=== PATIENT | male | born 1990 | race Caucasian/White ===

== ENCOUNTER 2020-05-15 17:23 | Emergency (ER) | payer OTHER, SELFPAY ==
--- NOTE | 2020-05-15 | XR_ITS ---
EXAMINATION: 1. LEFT FOREARM. 2. LEFT ELBOW. 3. LEFT HUMERUS CLINICAL INFORMATION: Trauma. Pain. COMPARISON: None TECHNIQUE: 1. Left forearm. 2 views 2. Left elbow. 3 views 3. Left humerus. 2 views FINDINGS: 1. Left forearm. No fracture of the radius or ulna. Wrist is unremarkable. 2. Left elbow. There is complete dislocation of the elbow. The radius and ulna are dislocated posterior to the distal humerus. No fracture is evident. 3. Left humerus. No fracture of the left humerus. The shoulder is intact. XR/XR humerus LT IMPRESSION: 1. Left forearm. No acute abnormality. 2. Left elbow. Complete dislocation of the elbow. 3. Left humerus. No acute abnormality.
--- NOTE | 2020-05-15 | XR_ITS ---
EXAMINATION: 1. LEFT FOREARM. 2. LEFT ELBOW. 3. LEFT HUMERUS CLINICAL INFORMATION: Trauma. Pain. COMPARISON: None TECHNIQUE: 1. Left forearm. 2 views 2. Left elbow. 3 views 3. Left humerus. 2 views FINDINGS: 1. Left forearm. No fracture of the radius or ulna. Wrist is unremarkable. 2. Left elbow. There is complete dislocation of the elbow. The radius and ulna are dislocated posterior to the distal humerus. No fracture is evident. 3. Left humerus. No fracture of the left humerus. The shoulder is intact. XR/XR elbow LT 2V IMPRESSION: 1. Left forearm. No acute abnormality. 2. Left elbow. Complete dislocation of the elbow. 3. Left humerus. No acute abnormality.
--- NOTE | 2020-05-15 | XR_ITS ---
EXAMINATION: 1. LEFT FOREARM. 2. LEFT ELBOW. 3. LEFT HUMERUS CLINICAL INFORMATION: Trauma. Pain. COMPARISON: None TECHNIQUE: 1. Left forearm. 2 views 2. Left elbow. 3 views 3. Left humerus. 2 views FINDINGS: 1. Left forearm. No fracture of the radius or ulna. Wrist is unremarkable. 2. Left elbow. There is complete dislocation of the elbow. The radius and ulna are dislocated posterior to the distal humerus. No fracture is evident. 3. Left humerus. No fracture of the left humerus. The shoulder is intact. XR/XR forearm LT 2V IMPRESSION: 1. Left forearm. No acute abnormality. 2. Left elbow. Complete dislocation of the elbow. 3. Left humerus. No acute abnormality.
[2020-05-15 18:11] VITALS: BP 150/88; PULSE 74; RESP 16; TEMP 36.6; O2SAT 96; BMI 22.3
[2020-05-15 19:36] VITALS: RESP 18
[2020-05-15] MEDS: LORazepam 2 MG/ML VIAL 1 MG IVPUSH (19:36)
[2020-05-15] MEDS: fentaNYL citrate/PF 100 MCG/2 ML VIAL IVPUSH (19:36)
--- NOTE | 2020-05-15 19:36 | PC.NURSE ---
PATIENT MEDICATED ORDERED WITH FENTANYL 50MCG AND ATIVAN 1MG. ABBEYCEMENT KILN OPERATOR, THIS RN, AND KAI HERRMANN AT BEDSIDE. PATIENT TOLERATED WELL. VITAL SIGNS REMAIN STABLE. PT IS A&O TO PERSON, PLACE, & TIME. RESPIRATIONS EVEN & UNLABORED. WILL CONTINUE TO MONITOR.
--- NOTE | 2020-05-15 19:42 | XR_ITS ---
EXAMINATION: XR ELBOW, LEFT CLINICAL INFORMATION: Post elbow reduction COMPARISON: None TECHNIQUE: AP, lateral, and oblique views of the left elbow. FINDINGS: The elbow dislocation has been reduced. 2 views show no evidence of fracture. Soft tissue swelling is present, significantly increased when compared to the prereduction films. XR/XR elbow LT 2V IMPRESSION: No fracture or dislocation. Soft tissue swelling is present
--- NOTE | 2020-05-15 19:50 | PC.NURSE ---
PATIENT MEDICATED FOR PAIN WITH FENTANYL 50MCG AND ATIVAN 1MG, ORDERED. PATIENT TOLERATED WILL. LIZZIE POTTER DID NOT WISH TO SEDATE PATIENT FOR LEFT ELBOW REDUCTION, PATIENT AGREEABLE TO PLAN OF CARE AND HAS A RIDE AVAILABLE TO DRIVE HIM HOME UPON DISCHARGE. PATIENT ALSO AWARE OF PLAN TO MONITOR IN ED PRIOR TO DISCHARGE HOME. SLING PLACED TO LEFT ARM, REPEAT X-RAY OBTAINED. PENDING RESULTS. PATIENT REMAINS CALM/COOPERATIVE, ALERT & ORIENTED TO PERSON,PLACE, & TIME. RESPIRATIONS EVEN & UNLABORED. SPEAKING IN CLEAR FULL SENTENCES. DENIES COMPLAINTS AT THIS TIME.
[2020-05-15 20:25] VITALS: BP 140/74; PULSE 75; RESP 18; TEMP 36.8; O2SAT 98
--- NOTE | 2020-05-15 20:28 | PC.NURSE ---
patient a&ox3, lt arm in sling, + csm/pulses to lue, vss, pt c/o 03/24 pain, will notify provider and continue to monitor.
[2020-05-15] MEDS: Ibuprofen 800 MG TABLET PO (21:05)
--- NOTE | 2020-05-15 21:06 | PC.NURSE ---
patient medicated for pain per order
--- NOTE | 2020-05-15 21:35 | ED.EXTPRO ---
HPI - Extremity Problem General Chief complaint: Fall Stated complaint: hand inj Time Seen by Provider: 05/15/20 18:00 Source: patient Mode of arrival: ambulatory Limitations: no limitations History of Present Illness HPI Narrative: Left elbow pain status post fall from skateboard. This occurred 45 minutes prior to arrival states he fell backwards hyper extended his arm and felt a popping sensation the elbow area. Denies any other injury. No head, neck, torso injury. Very pleasant does report that he is in recovery from substance and has not used any illicit substance and many years. MD Complaint: extremity pain Onset (ago): minute(s) Location: left Quality: aching Radiation: none Relieving factors: cold therapy and immobilization Exacerbating factors: range of motion and palpation Associated symptoms: denies other symptoms Related Data Previous Rx's Medication Instructions Recorded duloxetine 1 cap PO DAILY #30 cap 05/20/20 mirtazapine [Remeron] 15 mg PO BEDTIME #30 tab 05/20/20 nicotine 14 mg TRANSDERMAL DAILY #14 ea 05/20/20 prednisone 1 tab PO DAILY #30 tab 05/20/20 arm brace #1 ea 05/25/20 Allergies Allergy/AdvReac Type Severity Reaction Status Date / Time SEAFOOD Allergy Unknown UNKNOWN Uncoded 03/01/20 18:04 Review of Systems Review of Systems: Constitutional: No Weight loss, No Fever, No Chills, No Night Sweats, No Fatigue, No Malaise ENT/Mouth: No Hearing loss, No Ear Pain, No Nasal Congestion, No Sinus Pain, No Hoarseness, No sore throat, No Rhinorrhea, No Swallowing Difficulty Eyes: No Eye Pain, No Swelling, No Redness, No Foreign Body, No Discharge, No Vision Changes Cardiovascular: No Chest Pain, No SOB, No Dyspnea on Exertion, No Orthopnea, No Edema, No Palpitations Respiratory: No Cough, No Sputum, No Wheezing, No Smoke Exposure, No Dyspnea Gastrointestinal: No Nausea, No Vomiting, No Diarrhea, No Constipation, No abdominal Pain, No Hematochezia, No Melena Genitourinary: No Dysuria, No Urinary Frequency, No Hematuria, No Urinary Incontinence, No Urgency, No Flank Pain Musculoskeletal: No joint pain, No Myalgias, as noted in HPI Skin: No Skin Lesions, No rash Neuro: No Weakness, No Numbness, No Paresthesias, No Loss of Consciousness, No Dizziness, No Headache Psych: No Anxiety/Panic, No Depression, No SI/HI/AH/VH, No Social Issues Heme/Lymph: No Bruising, No Bleeding,No Lymphadenopathy Endocrine: No Polyuria, No Polydipsia, No Temperature Intolerance Yes all other systems are reviewed and are negative [facility] Past Medical History Medical History Cellulitis Eosinophilia HCV (hepatitis C virus) MRSA (methicillin resistant staph aureus) culture positive Opiate abuse, episodic Social History Social History Alcohol intake: never Smoking Status: Current every day smoker Packs Per Day: 1 Substance Use Type: Crack/Cocaine and Heroin service: No Current occupational status: unemployed Physical Exam Vital Signs: Vital Signs: Last Vital Signs Temp 98.2 F 05/15/20 20:25 Pulse 75 05/15/20 20:25 Resp 18 05/15/20 20:25 BP 140/74 H 05/15/20 20:25 Pulse Ox 98 05/15/20 20:25 Body Mass Index 22.3 Reviewed Const: General: cooperative and healthy appearing; No acute distress or intoxicated appearing Nutritional Appearance: average body habitus Orientation/consciousness: patient oriented x3 HENMT: Head: Yes normal to inspection Ears: hearing grossly normal bilaterally Eyes: General: appearance normal, both eyes and all related structures Visual Santos: normal visual santos by confrontation Neck: Neck: Yes normal visual inspection and No tender Thyroid: Thyroid normal Chest: Chest palpation & inspection: normal inspection of the chest Resp: Effort & Inspection: normal respiratory effort Cardio: Jugular venous distension: no JVD Rhythm: regular rhythm Heart sounds: S1 normal heart sound present and S2 normal heart sound present GI: Inspection: Yes normal to inspection Percussion: Yes normal to percussion Auscultation: normal bowel sounds : General: Yes no CVA tenderness Back/Spine/Pelvis: Back: no CVA tenderness Skin: General skin exam: no rashes or lesions noted Neuro: General: patient oriented x3 Extrem: General: Yes normal to inspection Shoulder/upper arm images: 1. Area of swelling held in flexed position exam limited due to pain. Course Course Course Narrative: AP of 29-year-old male presenting with left elbow pain status post fall from skateboard initial x-ray done upon arrival shows complete dislocation of the left elbow without acute fracture. Neurovascularly intact. Patient was subsequently given IV fluids, 1 mg lorazepam and 50 mg of fentanyl to assist with reduction. Patient tolerated this very well easy reduction please refer to procedure note. Patient post reduction elbow x-rays that showed successful reduction without acute fractures. Patient placed in a arm sling and referred to Orthopedics. Consultations Consultation #1: Case discussed with orthopedics agreeable with reduction, sling and follow up on outpatient basis. MDM - Extremity (Nontraumatic) Imaging Data Elbow/forearm left: Radiologist's impression: [address] [address] XRay Report Signed Patient: Guillermo Seaman DMR#: [id number] : 1990Acct:[id number] Age/Sex: 29 / MADM Date: 05/15/20 Loc: HO.ED Attending Dr: Ordering Physician: Mike Miner MD Date of Service: 05/15/20 Procedure(s): XR forearm LT 2V Accession Number(s): [id number] cc: Mike Miner MD~ EXAMINATION: 1. LEFT FOREARM. 2. LEFT ELBOW. 3. LEFT HUMERUS CLINICAL INFORMATION: Trauma. Pain. COMPARISON: None TECHNIQUE: 1. Left forearm. 2 views 2. Left elbow. 3 views 3. Left humerus. 2 views FINDINGS: 1. Left forearm. No fracture of the radius or ulna. Wrist is unremarkable. 2. Left elbow. There is complete dislocation of the elbow. The radius and ulna are dislocated posterior to the distal humerus. No fracture is evident. 3. Left humerus. No fracture of the left humerus. The shoulder is intact. XR/XR forearm LT 2V IMPRESSION: 1. Left forearm. No acute abnormality. 2. Left elbow. Complete dislocation of the elbow. 3. Left humerus. No acute abnormality. Dictated By:NAY GALVAN MD Signed By:<Electronically signed by NAY GALVAN MD in OV>05/15/20 1832 DD/ 175 TD/TT: Credit Reference Clerk: JENNIFER Post reduction left elbow x-ray: Radiologist's impression: [place] [address] XRay Report Signed Patient: Guillermo Seaman DMR#: [id number] : 1990Acct:[id number] Age/Sex: 29 / MADM Date: 05/18/20 Loc: [id number].C9729-[address]: Beltran Ba MD Ordering Physician: BRIAN ROSADO Date of Service: 05/18/20 Procedure(s): XR elbow LT min 3V Accession Number(s): [id number] cc: BRIAN ROSADO~ EXAMINATION: XR ELBOW, LEFT CLINICAL INFORMATION: Recent reduction elbow dislocation. Evaluate for recurrent dislocation. COMPARISON: Radiographs left elbow 05/15/2020 1943 hours and 1746 hours. TECHNIQUE: Left elbow is imaged in 3 views. FINDINGS: There is no acute or healing fracture or dislocation. Bony mineralization is normal. There is no destructive process or periostitis. No joint narrowing or erosive change. Soft tissue planes are not well appreciated on lateral view and possibility of a capsular effusion cannot be excluded. XR/XR elbow LT min 3V IMPRESSION: No fracture or dislocation. Dictated By:CHUN ALMANZA MD Signed By:<Electronically signed by CHUN ALMANZA MD in OV>05/18/20 1625 DD/ 1534 TD/TT: Credit Reference Clerk: FU Discharge Plan Discharge Clinical Impression: Dislocation closed, elbow Patient Disposition: Home, Self-Care Instructions: Elbow Dislocation (ED), Closed Reduction (ED) Additional Instructions: Wear sling for comfort Remove frequently gentle stretching Ibuprofen for pain Follow-up with orthopedic as needed in the next 1 week Return if any concerns or worsening symptoms Thank you Prescriptions: No Action nicotine 14 mg/24 hr Patch 24 Hour 14 mg transdermal DAILY Qty: 14 RF: 0 mirtazapine [Remeron] 15 mg tablet 15 mg PO BEDTIME Qty: 30 RF: 0 prednisone 10 mg tablet 1 tab PO DAILY Qty: 30 RF: 0 duloxetine 60 mg capsule,delayed release(DR/EC) 1 cap PO DAILY Qty: 30 RF: 0 (DME) arm brace Misc See Rx Instructions .MEDSUPPLY Qty: 1 RF: 0 Referrals: Johny Stack MD [Physician] - 1 week Interventions: ED Discharge Assessment Last Done: 05/15/20 21:56 Discharge Date/Time: 05/15/20 21:57
== END 2020-05-15 21:57 | disposition home or self-care (01) ==
PROVIDERS: Emergency Provider Emergency Medicine Emergency Medical Services; PCP Nurse Practitioner Family
DX: S53.105A Unspecified dislocation of left ulnohumeral joint, initial encounter (principal); M25.522 Pain in left elbow; M79.632 Pain in left forearm; F17.200 Nicotine dependence, unspecified, uncomplicated; V00.131A Fall from skateboard, initial encounter; Y93.51 Activity, roller skating (inline) and skateboarding; Y92.410 Unspecified street and highway as the place of occurrence of the external cause; Y99.8 Other external cause status; Z71.6 Tobacco abuse counseling
CPT/HCPCS: 73060; 73070; 73090; 96372; 96374; 96375; 99284; J2060; J3010

== ENCOUNTER 2020-05-18 09:57 | Inpatient (IN) | payer OTHER, SELFPAY ==
[2020-05-18] VITALS (9 sets, daily range): BP systolic 117–164; BP diastolic 54–111; PULSE 85–138; RESP 8–27; TEMP 36.7–37.6; O2SAT 94–100; BMI 24.3
--- NOTE | 2020-05-18 10:03 | CT_ITS ---
EXAMINATION: CT HEAD AND CT CERVICAL SPINE WITHOUT CONTRAST. CLINICAL INFORMATION: Head trauma. COMPARISON: None TECHNIQUE: 5 mm thin axial and reformatted 2 mm thin sagittal and coronal images of brain were obtained. Subsequently 3 mm thin axial and reformatted 2 mm thin sagittal and coronal images of cervical spine were obtained. DL 1245 FINDINGS: BRAIN: There is no acute intra-axial, extra-axial bleed, masses or midline shift. There is no acute infarction in evolution. The lateral ventricles are symmetrical in size and configuration without any enlargement. The may to white matter differentiation is maintained normal. No abnormality seen in the posterior fossa. Bone windows reveal no calvarial abnormality. Bilateral paranasal sinuses and mastoid air cells are well-aerated. There are paradoxical middle turbinates with mild kaylah bullosa right middle turbinate. Visualized bilateral optic globes, optic nerves and the bony orbits are unremarkable. CERVICAL SPINE: On sagittal reconstructed images there is mild straightening of cervical lordosis. The vertebral heights, alignment and disc heights are normal. There is no visible acute fracture, dislocation or subluxation. The craniovertebral junction and the C1-C2 alignment is normal. The prevertebral and paravertebral soft tissues are normal in thyroid lobes are symmetrical and normal. The lung apices are clear. CT/CT cervical spine wo con IMPRESSION: No acute intracranial process seen. No acute fracture, dislocation subluxation in cervical spine. Mild straightening of cervical lordosis likely positional or spasm.
[2020-05-18] MEDS: ondansetron HCL 4 MG/2 ML VIAL IVPUSH (10:32)
[2020-05-18 10:34] LABS: Basophils Percent Auto 0.1 % (0-2); Hematocrit 35.7 % (42-52); Hemoglobin 11.7 g/dl (14.0-18.0); Imm Gran Abs Auto 0.08 X10*3/uL (0.00-0.03); Imm Gran Pct Auto 0.6 % (0.0-0.4); Lymphocytes Absolute Auto 1.1 X10*3/uL (1.2-4.9); Lymphocytes Percent Auto 8.2 % (20-40); Mean Corpuscular HGB Conc 32.8 g/dl (31.0-36.0); Mean Corpuscular Hemoglobin 31.2 pg (27.0-33.0); Mean Corpuscular Volume 95.2 fL (80-98); Monocytes Absolute Auto 0.9 X10*3/uL (0.1-1.2); Monocytes Percent Auto 6.9 % (2-11); Neutrophils Absolute Auto 11.4 X10*3/uL (2.0-8.3); Neutrophils Percent Auto 84.2 % (45-73); Platelet Count 231 X10*3/uL (160-400); Red Blood Count 3.75 X10*6/uL (4.60-5.80); Red Cell Distribution Width 13.1 % (11.0-16.0); White Blood Count 13.6 X10*3/uL (4.8-10.8)
[2020-05-18 10:35] LABS: MANUAL DIFF FLAG NO
--- NOTE | 2020-05-18 10:47 | ED.OVERDOSE ---
HPI - Overdose General Chief Complaint: Overdose <TACHO Charles Last Filed: 05/18/20 16:09> Stated Complaint: OVERDOSE <TACHO Charles Last Filed: 05/18/20 16:09> Time Seen by Provider: 05/18/20 10:01 <TACHO Charles Last Filed: 05/18/20 16:09> Source: patient and EMS <TACHO Charles Last Filed: 05/18/20 16:09> Mode of arrival: EMS <TACHO Charles Last Filed: 05/18/20 16:09> History of Present Illness HPI Narrative: 29-year-old male with a past medical history of recently dislocated left elbow presenting to the ED BIBA for overdose on 2 bags of heroin and cocaine, found in an alleyway near [facility] by PD, unknown down time. PD gave patient 12 mg of Narcan at scene, patient became alert, walked to ambulance, feeling nauseous at present. Patient admits to injecting this morning, does not remember other events, unknown fall/trauma. Denies SI, EtOH, or other illicit drugs. Reports mild headache at present, denies taking anticoagulation. Denies abdominal pain, CP/SOB, pain in extremities Tetanus up-to-date <TACHO Charles Last Filed: 05/18/20 16:09> MD complaint: accidental overdose <TACHO Charles Last Filed: 05/18/20 16:09> Related Data Home Medications: Previous Rx's Medication Instructions Recorded duloxetine 1 cap PO DAILY #30 cap 05/20/20 mirtazapine [Remeron] 15 mg PO BEDTIME #30 tab 05/20/20 nicotine 14 mg TRANSDERMAL DAILY #14 ea 05/20/20 prednisone 1 tab PO DAILY #30 tab 05/20/20 arm brace #1 ea 05/25/20 <TACHO Charles Last Filed: 05/18/20 16:09> Allergies/Adverse Reactions: Allergies Allergy/AdvReac Type Severity Reaction Status Date / Time SEAFOOD Allergy Unknown UNKNOWN Uncoded 03/01/20 18:04 <TACHO Charles Last Filed: 05/18/20 16:09> Review of Systems Review of Systems: Constitutional: No Weight loss, No Fever ENT/Mouth: No Ear Pain, No Nasal Congestion Eyes: No Eye Pain, No Vision Changes Cardiovascular: No Chest Pain, No SOB Respiratory: No Cough Gastrointestinal: + Nausea, No Vomiting, No Diarrhea, No Constipation, No Abdominal pain Musculoskeletal: No joint pain, No Myalgias, No Joint Swelling Skin: No Skin Lesions, No rash Neuro: No Weakness, No Numbness, No Paresthesias, Loss of Consciousness Unknown, + Headache Psych: No Anxiety/Panic, No Depression, No SI/HI/AH/VH <TACHO Charles - Last Filed: 05/18/20 16:09> Yes all other systems are reviewed and are negative <TACHO Charles - Last Filed: 05/18/20 16:09> [facility] Past Medical History Attestation statement: The following information was validated with the patient. <TACHO Charles - Last Filed: 05/18/20 16:09> Medical History: Medical History Cellulitis Eosinophilia HCV (hepatitis C virus) MRSA (methicillin resistant staph aureus) culture positive Opiate abuse, episodic <TACHO Charles - Last Filed: 05/18/20 16:09> Social History Social History: Social History Alcohol intake: never Smoking Status: Current every day smoker Packs Per Day: 1 Substance Use Type: Crack/Cocaine and Heroin service: No Current occupational status: unemployed <TACHO Charles - Last Filed: 05/18/20 16:09> Physical Exam Vital Signs: Vital Signs: Last Vital Signs Temp 98.5 F 05/20/20 16:15 Pulse 67 05/20/20 16:15 Resp 18 05/20/20 16:15 BP 137/81 05/20/20 16:15 Pulse Ox 100 05/20/20 16:15 Body Mass Index 24.3 <TACHO Charles - Last Filed: 05/18/20 16:09> Vital Signs: Last Vital Signs Temp 98.5 F 05/20/20 16:15 Pulse 67 05/20/20 16:15 Resp 18 05/20/20 16:15 BP 137/81 05/20/20 16:15 Pulse Ox 100 05/20/20 16:15 Body Mass Index 24.3 <Vinay Almonte MD - Last Filed: 06/08/20 08:56> Const: Other: Appears under the influence, covered in dirt, poor hygiene <TACHO Charles - Last Filed: 05/18/20 16:09> General: cooperative and lethargic <Maranda Yuen PA - Last Filed: 05/18/20 16:09> Orientation/consciousness: patient oriented x3 and lethargic <Maranda Yuen PA - Last Filed: 05/18/20 16:09> Limitations: no limitations <Maranda Yuen PA - Last Filed: 05/18/20 16:09> HENMT: Head: Yes normal to inspection <TACHO Charles - Last Filed: 05/18/20 16:09> Ears: hearing grossly normal bilaterally <Maranda Yuen PA - Last Filed: 05/18/20 16:09> General nose exam: Normal external nose present <TACHO Charles - Last Filed: 05/18/20 16:09> Face and sinus: Yes normal facial exam <Maranda Yuen PA - Last Filed: 05/18/20 16:09> Mouth: Normal oral and palatal mucosa present <TACHO Charles - Last Filed: 05/18/20 16:09> Throat: Yes posterior oropharynx normal <TACHO Charles - Last Filed: 05/18/20 16:09> Eyes: Other: + abrasion noted to left lateral eye <TACHO Charles - Last Filed: 05/18/20 16:09> General: appearance normal, both eyes and all related structures <Maranda Yuen PA - Last Filed: 05/18/20 16:09> Pupils: Equal, round and reactive pupils present <TACHO Charles - Last Filed: 05/18/20 16:09> EOM: EOMs intact bilaterally <TACHO Charles - Last Filed: 05/18/20 16:09> Neck: Other: No midline cervical spinous tenderness <TACHO Charles - Last Filed: 05/18/20 16:09> Neck: Yes normal visual inspection and Yes no meningeal signs <Maranda Wilfrid [facility] Last Filed: 05/18/20 16:09> Resp: Effort & Inspection: normal respiratory effort <Maranda Wilfrid [facility] Last Filed: 05/18/20 16:09> Cardio: Rate: regular rate <Maranda Wilfrid IN - Last Filed: 05/18/20 16:09> GI: Inspection: Yes normal to inspection <Maranda Yuen IN - Last Filed: 05/18/20 16:09> Palpation (GI): Soft to palpation, nontender, no guarding and not rigid <Maranda Wilfrid [facility] Last Filed: 05/18/20 16:09> Back/Spine/Pelvis: Other: No midline thoracic/lumbar spinous tenderness. Superficial abrasions noted to low back <Marandanaheed Yuen [facility] Last Filed: 05/18/20 16:09> Skin: Rashes: no rashes <Maranda Yuen IN - Last Filed: 05/18/20 16:09> Wounds: no wounds <Maranda Yuen [facility] Last Filed: 05/18/20 16:09> Neuro: Other: Sling intact to left elbow <Maranda Wilfrid [facility] Last Filed: 05/18/20 16:09> General: patient oriented x3, tone normal, moves all extremities and no meningeal signs <Maranda Wilfrid [facility] Last Filed: 05/18/20 16:09> Cranial nerves: Yes Equal, round and reactive pupils present <Maranda Yuen [facility] Last Filed: 05/18/20 16:09> Gait exam (Neuro): Normal gait present <Maranda Yuen [facility] Last Filed: 05/18/20 16:09> Extrem: Other: Pelvis stable <Maranda Yuen [facility] Last Filed: 05/18/20 16:09> General: Yes normal to inspection <Maranda Yuen [facility] Last Filed: 05/18/20 16:09> Course Course Course Narrative: -mild leukocytosis of 13.6, BUN elevated at 22, AST elevated, ALT chronically elevated, CPK very elevated at 6995 > consistent with rhabdomyolysis, IVF ordered, plan to admit -head CT/C-spine unremarkable -patient was sleeping comfortably, now awake, pleasantly talking to self/anxiously moving around bed, diaphoretic, appears to be on PCP/under the influence > Sepsis not suspected <TACHO Charles - Last Filed: 05/18/20 16:09> I have discussed the case and management with the DESIREE <Vinay Almonte MD - Last Filed: 06/08/20 08:56> MDM - Overdose MDM Narrative Medical decision making narrative: 29-year-old male with a past medical history of recently dislocated left elbow presenting to the ED BIBA for overdose on 2 bags of heroin and cocaine, found in an alleyway near [facility] by PD, unknown down time. On exam VSS, lethargic/under the influence, facial abrasion noted, no midline spinous tenderness, A&O x3, no focal deficits. Concern for fracture/ICH. R/o rhabdo. Lower concern for metabolic/infectious etiology Plan: Labs, ENRIQUEZ, head/C-spine CT, observe and reassess for clinical sobriety <TACHO Charles - Last Filed: 05/18/20 16:09> Lab Data Result diagrams: : 05/19/20 05:56 05/20/20 06:05 <TACHO Charles - Last Filed: 05/18/20 16:09> Labs: Lab Results 05/18/20 05/18/20 05/18/20 Range/Units 10:28 10:28 13:56 WBC 13.6 H (4.8-10.8) X10*3/uL RBC 3.75 L (4.60-5.80) X10*6/uL Hgb 11.7 L (14.0-18.0) g/dl Hct 35.7 L (42-52) % MCV 95.2 (80-98) fL MCH 31.2 (27.0-33.0) pg MCHC 32.8 (31.0-36.0) g/dl RDW 13.1 (11.0-16.0) % Plt Count 231 (160-400) X10*3/uL MPV 10.0 (9.4-12.4) fL Immature Gran % (Auto) 0.6 H (0.0-0.4) % Neut % (Auto) 84.2 H (45-73) % Lymph % (Auto) 8.2 L (20-40) % Newton % (Auto) 6.9 (2-11) % Eos % (Auto) 0.0 (0-4) % Baso % (Auto) 0.1 (0-2) % Lymph # (Auto) 1.1 L (1.2-4.9) X10*3/uL Newton # (Auto) 0.9 (0.1-1.2) X10*3/uL Eos # (Auto) 0.0 (0.0-0.4) X10*3/uL Baso # (Auto) 0.0 (0.0-0.2) X10*3/uL Abs Immat Gran (auto) 0.08 H (0.00-0.03) X10*3/uL Absolute Neuts (auto) 11.4 H (2.0-8.3) X10*3/uL Absolute Nucleated RBC 0.000 (0.0-0.012) X10*3/uL Nucleated RBC % (auto) 0.0 (0.0-0.2) /100WBC Sodium 138 (135-145) mmol/L Potassium 4.3 (3.3-5.1) mmol/l Chloride 99 (96-108) mmol/L Carbon Dioxide 26 (22-29) mmol/L Anion Gap 17 (12-20) BUN 22 H (9-16) mg/dL Creatinine 1.18 (0.5-1.4) mg/dL Estim Creat Clear Calc 93.6 Estimated GFR > 60 Random Glucose 136 H (60-115) mg/dL Calcium 8.7 (8.4-10.2) mg/dL Magnesium 2.0 (1.6-2.6) mg/dL Total Bilirubin 0.9 (0.0-1.0) mg/dL Direct Bilirubin 0.3 (0.0-0.5) mg/dL AST 155 H (5-37) U/L ALT 76 H (0-40) U/L Alkaline Phosphatase 48 (39-117) U/L Total Creatine Kinase 6995 H (38-174) U/L B-Natriuretic Peptide Cancelled Total Protein 7.1 (6.5-8.0) g/dL Albumin 4.3 (3.5-5.0) g/dL <Maranda [facility], [facility] - Last Filed: 05/18/20 16:09> Lab Results 05/18/20 05/18/20 05/18/20 Range/Units 10:28 10:28 13:56 WBC 13.6 H (4.8-10.8) X10*3/uL RBC 3.75 L (4.60-5.80) X10*6/uL Hgb 11.7 L (14.0-18.0) g/dl Hct 35.7 L (42-52) % MCV 95.2 (80-98) fL MCH 31.2 (27.0-33.0) pg MCHC 32.8 (31.0-36.0) g/dl RDW 13.1 (11.0-16.0) % Plt Count 231 (160-400) X10*3/uL MPV 10.0 (9.4-12.4) fL Immature Gran % (Auto) 0.6 H (0.0-0.4) % Neut % (Auto) 84.2 H (45-73) % Lymph % (Auto) 8.2 L (20-40) % Newton % (Auto) 6.9 (2-11) % Eos % (Auto) 0.0 (0-4) % Baso % (Auto) 0.1 (0-2) % Lymph # (Auto) 1.1 L (1.2-4.9) X10*3/uL Newton # (Auto) 0.9 (0.1-1.2) X10*3/uL Eos # (Auto) 0.0 (0.0-0.4) X10*3/uL Baso # (Auto) 0.0 (0.0-0.2) X10*3/uL Abs Immat Gran (auto) 0.08 H (0.00-0.03) X10*3/uL Absolute Neuts (auto) 11.4 H (2.0-8.3) X10*3/uL Absolute Nucleated RBC 0.000 (0.0-0.012) X10*3/uL Nucleated RBC % (auto) 0.0 (0.0-0.2) /100WBC Sodium 138 (135-145) mmol/L Potassium 4.3 (3.3-5.1) mmol/l Chloride 99 (96-108) mmol/L Carbon Dioxide 26 (22-29) mmol/L Anion Gap 17 (12-20) BUN 22 H (9-16) mg/dL Creatinine 1.18 (0.5-1.4) mg/dL Estim Creat Clear Calc 93.6 Estimated GFR > 60 Random Glucose 136 H (60-115) mg/dL Calcium 8.7 (8.4-10.2) mg/dL Magnesium 2.0 (1.6-2.6) mg/dL Total Bilirubin 0.9 (0.0-1.0) mg/dL Direct Bilirubin 0.3 (0.0-0.5) mg/dL AST 155 H (5-37) U/L ALT 76 H (0-40) U/L Alkaline Phosphatase 48 (39-117) U/L Total Creatine Kinase 6995 H (38-174) U/L B-Natriuretic Peptide Cancelled Total Protein 7.1 (6.5-8.0) g/dL Albumin 4.3 (3.5-5.0) g/dL <Vinay Almonte MD - Last Filed: 06/08/20 08:56> Discharge Plan Discharge Clinical Impression: Drug overdose, Rhabdomyolysis <TACHO Charles - Last Filed: 05/18/20 16:09> Patient Disposition: Admitted as Observation <TACHO Charles - Last Filed: 05/18/20 16:09> Discharge Date/Time: 05/18/20 19:45 <TACHO Charles - Last Filed: 05/18/20 16:09>
[2020-05-18 11:04] LABS: Alanine Aminotransferase 76 U/L (0-40); Albumin Level 4.3 g/dL (3.5-5.0); Alkaline Phosphatase 48 U/L (39-117); Anion Gap 17 (12-20); Aspartate Amino Transferase 155 U/L (5-37); Bilirubin Direct 0.3 mg/dL (0.0-0.5); Bilirubin Total 0.9 mg/dL (0.0-1.0); Blood Urea Nitrogen 22 mg/dL (9-16); Calcium 8.7 mg/dL (8.4-10.2); Carbon Dioxide 26 mmol/L (22-29); Chloride 99 mmol/L (96-108); Creatinine Clr Calc Pharmacy 93.6; Estimated Glomerular Filt Rate > 60; Glucose Random 136 mg/dL (60-115); Potassium 4.3 mmol/l (3.3-5.1); Sodium 138 mmol/L (135-145); Total Protein 7.1 g/dL (6.5-8.0)
[2020-05-18] MEDS: 0.9 % Sodium Chloride 1,000 ML 999 ML IVCONT ×2 (12:06→12:07)
--- NOTE | 2020-05-18 12:44 | MHC.CARE ---
Recovery Support note: Patient is a 29 year old Liberian speaking male who presented to [facility] ED via EMS after an accidental overdose. Patient reports he has had seven months of sobriety before relapsing on Thursday. Patient reports he was able to maintain sobriety by staying busy and working. Reports he dislocated his shoulder and relapsed due to the immense pain, states he tried going to the hospital twice and was not able to get the pain under control. Patient reports he does not like the idea of MAT and has not found it helpful. Patient also did not express interest in support groups. Encouraged patient to continue to stay busy and keep moving forward with his recovery. Discussed coping skills to address pain.
--- NOTE | 2020-05-18 14:04 | P.HPHOSP_ITS ---
History of Present Illness Date of Service: 05/18/20 <TACHO Prince - Last Filed: 05/18/20 17:04> Chief Complaint: drug overdose <TACHO Prince - Last Filed: 05/18/20 17:04> This is a 29-year-old male with history of opiate abuse who was brought into the emergency department after being found down in an alley. He reports injecting heroin and cocaine and then does not remember anything afterward. He woke to people standing around him. He was given Narcan in the field and brought to the emergency department for evaluation. He was reportedly awake and alert on arrival and did not require any additional narcan. Brain CT and C- spine CT were unremarkable. Lab work revealed leukocytosis of 13.6 as well as CPK 6995. He was treated with IVF. His creatinine was near his baseline at 1.18. <TACHO Prince - Last Filed: 05/18/20 17:04> Review of Systems Review of Systems: Yes all other systems are reviewed and are negative <TACHO Hernandez - Last Filed: 05/18/20 17:04> Constitutional: Constitutional: Denies chills and Denies fever(s) <TACHO Prince - Last Filed: 05/18/20 17:04> Cardiovascular: Cardiovascular: Denies chest pain <TACHO Prince - Last Filed: 05/18/20 17:04> Respiratory: Respiratory: Denies cough <TACHO Prince - Last Filed: 05/18/20 17:04> Gastrointestinal: Gastrointestinal: Denies abdominal pain <TACHO Prince - Last Filed: 05/18/20 17:04> [facility] Medical History: Medical History (Updated 05/18/20 @ 17:02 by TACHO Prince) Eosinophilia HCV (hepatitis C virus) Opiate abuse, episodic <TACHO Prince - Last Filed: 05/18/20 17:04> Functional capacity: independent ambulation <TACHO Prince - Last Filed: 05/18/20 17:04> Pertinent family history: no history of CAD, DM or CVA <TACHO Prince - Last Filed: 05/18/20 17:04> Social History: Social History (Updated 05/18/20 @ 14:15 by TACHO Prince) Alcohol intake: never Smoking Status: Current every day smoker Packs Per Day: 1 Use of substances other than those prescribed or required for medical reasons: Yes Substance Use Type: Crack/Cocaine and Heroin Advance Directives: No Advance Directives Information Provided: No <TACHO Prince - Last Filed: 05/18/20 17:04> Meds Allergies/Adverse reactions: Allergies Allergy/AdvReac Type Severity Reaction Status Date / Time SEAFOOD Allergy Unknown UNKNOWN Uncoded 03/01/20 18:04 <TACHO Prince - Last Filed: 05/18/20 17:04> Home medications: Home Medications Medication Instructions Recorded Confirmed Type duloxetine 1 cap PO DAILY 05/18/20 05/18/20 History ibuprofen 800 mg PO BID PRN 05/18/20 05/18/20 History prednisone 1 tab PO DAILY 05/18/20 05/18/20 History <TACHO Prince - Last Filed: 05/18/20 17:04> Physical Exam Vital Signs and Narrative: Vital Signs: Last Vital Signs Temp 98.1 F 05/18/20 10:05 Pulse 85 05/18/20 10:05 Resp 20 05/18/20 10:05 BP 136/77 05/18/20 10:05 Pulse Ox 98 05/18/20 10:05 Body Mass Index 24.3 <TACHO Prince - Last Filed: 05/18/20 17:04> Const: General: cooperative, no acute distress, alert and awake <TACHO Prince - Last Filed: 05/18/20 17:04> Nutritional Appearance: well nourished <TACHO Prince - Last Filed: 05/18/20 17:04> Orientation/consciousness: patient oriented x3 <TACHO Prince - Last Filed: 05/18/20 17:04> HENMT: Head: Yes normocephalic and Yes atraumatic <TACHO Prince - Last Filed: 05/18/20 17:04> Eyes: Sclerae: sclerae normal <TACHO Prince - Last Filed: 05/18/20 17:04> Chest: Chest palpation & inspection: normal inspection of the chest <TACHO Prince - Last Filed: 05/18/20 17:04> Resp: Effort & Inspection: normal respiratory effort and no respiratory distress <TACHO Prince - Last Filed: 05/18/20 17:04> Auscultation: clear to auscultation bilaterally <TACHO Prince - Last Filed: 05/18/20 17:04> Cardio: Rate: regular rate <TACHO Prince - Last Filed: 05/18/20 17:04> Rhythm: regular rhythm <TACHO Prince - Last Filed: 05/18/20 17:04> GI: Palpation (GI): Soft to palpation and nontender <TACHO Prince - Last Filed: 05/18/20 17:04> Skin: General skin exam: no rashes or lesions noted <TACHO Prince - Last Filed: 05/18/20 17:04> Neuro: General: patient oriented x3 <TACHO Prince - Last Filed: 05/18/20 17:04> Cranial nerves: Yes CN's II-XII intact bilaterally and Yes Bilaterally intact EOM present <TACHO Prince - Last Filed: 05/18/20 17:04> Extrem: Other: left upper extremity in sling <TACHO Prince - Last Filed: 05/18/20 17:04> Results Labs CBC and Chem 7: : 05/18/20 10:28 05/18/20 10:28 <TACHO Prince - Last Filed: 05/18/20 17:04> Labs: Laboratory Results - last 24 hr 05/18/20 05/18/20 10:28 10:28 MCV 95.2 MCH 31.2 MCHC 32.8 RDW 13.1 Plt Count 231 MPV 10.0 Immature Gran % (Auto) 0.6 H Neut % (Auto) 84.2 H Lymph % (Auto) 8.2 L Haakon % (Auto) 6.9 Eos % (Auto) 0.0 Baso % (Auto) 0.1 Lymph # (Auto) 1.1 L Haakon # (Auto) 0.9 Eos # (Auto) 0.0 Baso # (Auto) 0.0 Abs Immat Gran (auto) 0.08 H Absolute Neuts (auto) 11.4 H Absolute Nucleated RBC 0.000 Nucleated RBC % (auto) 0.0 Anion Gap 17 Estim Creat Clear Calc 93.6 Estimated GFR > 60 Random Glucose 136 H Calcium 8.7 Magnesium 2.0 Total Bilirubin 0.9 Direct Bilirubin 0.3 AST 155 H ALT 76 H Alkaline Phosphatase 48 Total Creatine Kinase 6995 H Total Protein 7.1 Albumin 4.3 <TACHO Prince - Last Filed: 05/18/20 17:04> Imaging Radiologist's Impressions: Impressions Cervical Spine CT 05/18/20 10:03 IMPRESSION: No acute intracranial process seen. No acute fracture, dislocation subluxation in cervical spine. Mild straightening of cervical lordosis likely positional or spasm. Head CT 05/18/20 10:03 IMPRESSION: No acute intracranial process seen. No acute fracture, dislocation subluxation in cervical spine. Mild straightening of cervical lordosis likely positional or spasm. <TACHO Prince - Last Filed: 05/18/20 17:04> Assessment and Plan (1) Rhabdomyolysis: Status: Acute <TACHO Prince - Last Filed: 05/18/20 17:04> (2) Drug overdose: Status: Acute <TACHO Prince - Last Filed: 05/18/20 17:04> This is a 29-year-old male with a history of opiate abuse who was brought to the emergency department after being found down, treated with narcan, found to have rhabdo. Rhabdomyolysis. CPK 6995 Secondary to drug use IV fluid Monitor renal function Follow CPK Drug overdose/opiate abuse care team evaluation clonidine/ativan for withdrawal symptoms tox screen pending leukocytosis cxr, ua pending transaminitis likely r/t HCV follow liver panel tabacco dependence NRT dvt ppx - lovenox code status - full code this case was discussed with Dr. Ba <TACHO Prince - Last Filed: 05/18/20 17:04>
--- NOTE | 2020-05-18 14:32 | XR_ITS ---
EXAMINATION: XR CHEST CLINICAL INFORMATION: Overdose COMPARISON: Chest radiograph 10/09/2019 TECHNIQUE: Portable upright AP view of the chest was obtained. FINDINGS: The lungs are clear. There is no vascular congestion, airspace consolidation or groundglass opacity. The heart is normal in size. The hilar and mediastinal contours and bony structures are unremarkable. XR/XR chest 1V IMPRESSION: Unremarkable examination.
--- NOTE | 2020-05-18 15:34 | XR_ITS ---
EXAMINATION: XR ELBOW, LEFT CLINICAL INFORMATION: Recent reduction elbow dislocation. Evaluate for recurrent dislocation. COMPARISON: Radiographs left elbow 05/15/2020 1943 hours and 1746 hours. TECHNIQUE: Left elbow is imaged in 3 views. FINDINGS: There is no acute or healing fracture or dislocation. Bony mineralization is normal. There is no destructive process or periostitis. No joint narrowing or erosive change. Soft tissue planes are not well appreciated on lateral view and possibility of a capsular effusion cannot be excluded. XR/XR elbow LT min 3V IMPRESSION: No fracture or dislocation.
[2020-05-18 15:54] LABS: Glucose Urine UA NEG (NEG); Leukocyte Esterase Urine NEG (NEG); Nitrite Urine NEG (NEG); Specific Gravity - Urine >= 1.030 (1.005-1.025); Urine Blood NEG (NEG); Urine Ketones NEG (NEG); Urine Protein NEG (NEG-TRACE)
[2020-05-18 16:00] LABS: Appearance Urine CLEAR; Color Urine YELLOW
[2020-05-18 16:11] LABS: COVID-19 Test Negative (Negative); IDNOW Serial# 9DD0AD1C
[2020-05-18 16:27] LABS: Amphetamine Screen Urine Not Detected (Not Detect); Barbiturates, Urine Not Detected (Not Detect); Benzodiazepines Screen Urine Not Detected (Not Detect); Cannabinoid Screen Urine Not Detected (Not Detect); Cocaine Screen Urine POSITIVE (Not Detect); Opiate Screen Urine POSITIVE (Not Detect); Phencyclidine Screen Urine Not Detected (Not Detect)
[2020-05-18] MEDS: LORazepam 2 MG/ML VIAL 1 MG IVPUSH (16:39)
[2020-05-18] MEDS: diphenhydrAMINE HCL 50 MG/ML VIAL 25 MG IVPUSH (16:40)
[2020-05-18] MEDS: 0.9 % Sodium Chloride Flush 3 ML SYRINGE IVFLUSH (16:55)
--- NOTE | 2020-05-18 17:13 | MHC.CARE ---
CARE team received consult for opiate use for this patient who moved from ED to [place] [id number]. Patient was already seen in the emergency room regarding substance use. CARE team updated nurse at [phone].
[2020-05-18 17:48] LABS: Pt Ventilation O2% 2 L
[2020-05-18 17:50] LABS: HCO3 ABG 31 mmol/l (22-26); PO2 ABG 89 mmhg (83-108); pH ABG 7.27 (7.35-7.45)
[2020-05-18 17:51] LABS: Base Excess ABG 2.3; Oxygen Saturation ABG 95.5 %
[2020-05-18 17:53] LABS: ABG PCO2 68 mmhg (32-45)
[2020-05-18] MEDS: Naloxone HCl 2 MG/2 ML SYRINGE 1 MG IV ×2 (18:05→18:33)
[2020-05-18] MEDS: Lactated Ringers 1,000 ML 150 ML IVCONT (19:20)
[2020-05-18] MEDS: Naloxone HCl 5 MG in Dextrose 5 % 95 ML 10 MG IV (19:53)
--- NOTE | 2020-05-18 19:58 | PC.NURSE ---
Pt arrives on unit at approximately 1700. Report from the ED said pt received ativan and benadryl prior to transfer. [employer] reports pt was anxious and irratic. Pt became somnolent and SPO2 dropped to high 70s. Pt placed on NRB and RN and MD notified. Dr Ba in to see pt. Pt high 80s on RA. Pt placed on 2LPM O2 via NC, SPO2 at 97% and remained there. Pt unresponsive to painful stimuli. STAT ABGs ordered. Orders for transfer to IMC/ICU being determined. Narcan 1ml IV delivered. Pt arousable to voice. Able to answer a couple of questions before becoming somnolent again. 2nd dose of narcan 1mg IV given. IVF started. Transfer started to [facility]. Report given to [facility]. Pt transferred at 1930. Pt has open areas of skin to forehead. Report from friend that pt had fallen off skateboard a couple of days ago. Report from ED that pt had been seen [facility] for L elbow dislocation secondary to above accident. Left arm is swollen, deep red, and warm to touch. Xray of L arm completed in ED. No dislocation seen. Patient lungs diminished, no adventitious sounds noted. ABD SNT, BS present. Scratches noted on chest, back, face, arms and legs.
[2020-05-18] MEDS: Enoxaparin Sodium 40 MG/0.4 ML SYRINGE SUBCUT (20:07)
[2020-05-19] VITALS (12 sets, daily range): BP systolic 106–151; BP diastolic 59–68; PULSE 69–98; RESP 14–20; TEMP 36.6–37.1; O2SAT 95–98
[2020-05-19] MEDS: Lactated Ringers 1,000 ML 150 ML IVCONT (01:40)
[2020-05-19] MEDS: Naloxone HCl 5 MG in Dextrose 5 % 95 ML 10 MG IV (04:08)
[2020-05-19 06:32] LABS: MANUAL DIFF FLAG NO
[2020-05-19 07:07] LABS: Basophils Percent Auto 0.2 % (0-2); Eosinophils Absolute Auto 0.1 X10*3/uL (0.0-0.4); Eosinophils Percent Auto 1.4 % (0-4); Hematocrit 30.4 % (42-52); Hemoglobin 10.2 g/dl (14.0-18.0); Imm Gran Abs Auto 0.04 X10*3/uL (0.00-0.03); Imm Gran Pct Auto 0.5 % (0.0-0.4); Lymphocytes Absolute Auto 3.2 X10*3/uL (1.2-4.9); Lymphocytes Percent Auto 38.7 % (20-40); Mean Corpuscular HGB Conc 33.6 g/dl (31.0-36.0); Mean Corpuscular Hemoglobin 31.7 pg (27.0-33.0); Mean Corpuscular Volume 94.4 fL (80-98); Mean Platelet Volume 10.3 fL (9.4-12.4); Monocytes Absolute Auto 0.6 X10*3/uL (0.1-1.2); Monocytes Percent Auto 7.7 % (2-11); Neutrophils Absolute Auto 4.3 X10*3/uL (2.0-8.3); Neutrophils Percent Auto 51.5 % (45-73); Platelet Count 199 X10*3/uL (160-400); Red Blood Count 3.22 X10*6/uL (4.60-5.80); Red Cell Distribution Width 13.4 % (11.0-16.0); White Blood Count 8.3 X10*3/uL (4.8-10.8)
--- NOTE | 2020-05-19 07:27 | PC.NURSE ---
Assumed care ~19:30; Patient admitted for a drug overdose/Rhabdomyolysis. The patient was transferred to [facility] from [facility] for closer monitoring of sedation. Upon trx to unit, patient aurosable to deep sternal rub, A/O to person/place. Placed on the monitor, SR 70's, SBP 110', RR 14-16, SPO2 >95% on RA. Narcan drip started at 0.5mg/hr, 10ml/hr per orders. LR @ 150ml/hr. Mother called, and updated on patient's status. ~06:00; Patient remain calm/cooperative throughout the night. Patient A/O x3, easily arousable to verbal stimuli, lungs CTA, abd soft, +BS. VSS. UOP 300ml. Urine dark. Skin; Left upper arm/elbow region swollen (skin tight), bruising/warmth noted, + pulses. Abrasion to face open to air, scratches to to bilateral arms and lower legs. Nursing to continue to monitor.
[2020-05-19 07:41] LABS: Alanine Aminotransferase 60 U/L (0-40); Albumin Level 3.4 g/dL (3.5-5.0); Alkaline Phosphatase 40 U/L (39-117); Anion Gap 10 (12-20); Aspartate Amino Transferase 102 U/L (5-37); Bilirubin Direct 0.4 mg/dL (0.0-0.5); Blood Urea Nitrogen 17 mg/dL (9-16); Calcium 8.2 mg/dL (8.4-10.2); Carbon Dioxide 30 mmol/L (22-29); Chloride 101 mmol/L (96-108); Creatinine Clr Calc Pharmacy 122.7; Estimated Glomerular Filt Rate > 60; Glucose Random 108 mg/dL (60-115); Potassium 3.6 mmol/l (3.3-5.1); Sodium 137 mmol/L (135-145); Total Protein 5.4 g/dL (6.5-8.0)
--- NOTE | 2020-05-19 11:23 | PC.NURSE ---
1100- Narcan drip turned off. vitals remaining wnl. Patient is alert and oriented x4. Denies any discomfort. Ate 100% breakfast. MD updated. Will continue to monitor and assess.
[2020-05-19] MEDS: Lactated Ringers 1,000 ML 100 ML IVCONT ×2 (12:07→18:43)
[2020-05-19] MEDS: cloNIDine HCL 0.1 MG TABLET PO (13:47)
--- NOTE | 2020-05-19 15:41 | P.CONOP_ITS ---
History of Present Illness HPI Consult date: 05/19/20 Chief complaint: left arm swelling Narrative: Mr. Seaman is a 29 yo male who was brought to the ED on 05/18 after being found in an alley unconscious from a drug overdose. Just a few days prior to this episode , on 05/15 he was in the ED for an elbow dislocation which was successfully reduced. While unconscious in the alley, it is unclear how long he had been down for but workup in the ED showed leukocytosis of 13.6 as well as CPK 6995. He was admitted to medical service and orthopedics was consulted for evaluation and further recommendation of the left arm. Review of Systems 2 Musculoskeletal: Comments: c/o pain in the left elbow with extension PMFSH Past Medical History Medical History (Updated 05/18/20 @ 17:02 by TACHO Prince) Eosinophilia HCV (hepatitis C virus) Opiate abuse, episodic Functional capacity: independent ambulation Social History Social History (Updated 05/19/20 @ 15:58 by Annie Pickard PA-C) Alcohol intake: never Smoking Status: Current every day smoker Packs Per Day: 1 Use of substances other than those prescribed or required for medical reasons: Unable to respond Substance Use Type: Crack/Cocaine and Heroin Substance Use Frequency: Recent Binge Last Used Substance: Just Prior to Admission Currently Displaying Signs/Symptoms of Drug Intoxication Withdrawal: No Advance Directives: No Advance Directives Information Provided: No Advance Directives on File: No Recently lost weight without trying: Unsure Meds Allergies Allergy/AdvReac Type Severity Reaction Status Date / Time SEAFOOD Allergy Unknown UNKNOWN Uncoded 03/01/20 18:04 Home Medications Medication Instructions Recorded Confirmed Type duloxetine 1 cap PO DAILY 05/18/20 05/18/20 History ibuprofen 800 mg PO BID PRN 05/18/20 05/18/20 History prednisone 1 tab PO DAILY 05/18/20 05/18/20 History Physical Exam Vital Signs: Vital Signs: Last Vital Signs Temp 98 F 05/19/20 12:00 Pulse 72 05/19/20 13:47 Resp 18 05/19/20 12:00 BP 132/65 05/19/20 12:00 Pulse Ox 96 05/19/20 12:00 Body Mass Index 24.3 Const: General: cooperative and no acute distress Orientation /consciousness: patient oriented x3 Resp: Effort & Inspection: normal respiratory effort and able to speak in complete sentences Cardio: Peripheral pulses: Peripheral pulses 2+ throughout Neuro: General: patient oriented x3 Extrem: Other: left upper extremity swelling from humerus down to forearm. He has good sensation and perfusion. He has flexion of the elbow to 90, extension lacking 5 degrees. He is able to make a fist and fully extend all fingers. Results Labs Result Diagrams: 05/19/20 05:56 05/19/20 05:56 Labs: Abnormal lab results 05/18/20 05/18/20 05/18/20 Range/Units 15:34 15:34 17:35 RBC (4.60-5.80) X10*6/uL Hgb (14.0-18.0) g/dl Hct (42-52) % Immature Gran % (Auto) (0.0-0.4) % Abs Immat Gran (auto) (0.00-0.03) X10*3/uL ABG pH 7.27 L (7.35-7.45) ABG pCO2 68 H* (32-45) mmhg ABG HCO3 31 H (22-26) mmol/l Carbon Dioxide (22-29) mmol/L Anion Gap (12-20) BUN (9-16) mg/dL Calcium (8.4-10.2) mg/dL AST (5-37) U/L ALT (0-40) U/L Total Creatine Kinase (38-174) U/L Total Protein (6.5-8.0) g/dL Albumin (3.5-5.0) g/dL Ur Specific [place] >= 1.030 H (1.005-1.025) Urine Opiates Screen POSITIVE H (Not Detect) Urine Cocaine Screen POSITIVE H (Not Detect) 05/18/20 05/19/20 05/19/20 Range/Units 18:32 05:56 05:56 RBC 3.22 L (4.60-5.80) X10*6/uL Hgb 10.2 L (14.0-18.0) g/dl Hct 30.4 L (42-52) % Immature Gran % (Auto) 0.5 H (0.0-0.4) % Abs Immat Gran (auto) 0.04 H (0.00-0.03) X10*3/uL ABG pH (7.35-7.45) ABG pCO2 (32-45) mmhg ABG HCO3 (22-26) mmol/l Carbon Dioxide 30 H (22-29) mmol/L Anion Gap 10 L (12-20) BUN 17 H (9-16) mg/dL Calcium 8.2 L (8.4-10.2) mg/dL AST 102 H (5-37) U/L ALT 60 H (0-40) U/L Total Creatine Kinase 6912 H 4575 H (38-174) U/L Total Protein 5.4 L D (6.5-8.0) g/dL Albumin 3.4 L D (3.5-5.0) g/dL Ur Specific [place] (1.005-1.025) Urine Opiates Screen (Not Detect) Urine Cocaine Screen (Not Detect) H & H 05/18/20 05/19/20 Range/Units 10:28 05:56 Hgb 11.7 L 10.2 L (14.0-18.0) g/dl Hct 35.7 L 30.4 L (42-52) % All other labs normal. Assessment and Plan (1) Rhabdomyolysis: Status: Acute I discussed the case with Dr Stack and also to the patient at bedside. I recommend he limit use of the left arm and elevate throughout the day to help with the swelling. There is no need for surgical intervention, we will continue to monitor and follow .
--- NOTE | 2020-05-19 16:38 | P.PNIM_ITS ---
Subjective Subjective Date of Service: 05/19/20 Interval History: seen and examined better denies withdrawal symptoms seen later off narcan and still doing well ROS General - no fevers or chills Cardiovascular - no chest pain Respiratory - no shortness of breath or cough Abdominal- no abdominal pain, nausea, vomiting, diarrhea MSK - LUE pain improving Physical Exam Vital Signs: Vital Signs: Last Vital Signs Temp 98.3 F 05/19/20 16:01 Pulse 86 05/19/20 16:01 Resp 20 05/19/20 16:01 BP 123/59 L 05/19/20 16:01 Pulse Ox 97 05/19/20 16:01 Body Mass Index 24.3 Const: Other: General - no acute distress, appears comfortable Cardiovascular - regular rate and rhythm, S1-S2 Lungs - normal respiratory effort, clear to auscultation bilaterally, no wheezing Abdomen - soft, nontender, no rebound or guarding Extremities - LUE swelling, pain minimal, +radial pulses; nearly room ROM at L elbow Neuro - awake and alert, no focal deficits Objective Data Current Medications Generic Name Dose Route Start Last Admin Trade Name Freq PRN Reason Stop Dose Admin Acetaminophen 650 mg 05/18/20 16:51 Acetaminophen 325 Mg Tablet PO Q6H PRN Pain, Mild (Pain Scale 1-3) Clonidine HCl 0.1 mg 05/19/20 13:31 05/19/20 13:47 Clonidine Hcl 0.1 Mg Tablet PO 0.1 mg Q6H PRN Administration Opiate Withdrawal Protocol Docusate Sodium 100 mg 05/18/20 16:51 Docusate Sodium 100 Mg Capsule PO DAILY PRN Constipation Duloxetine HCl 60 mg 05/19/20 09:00 Duloxetine Hcl 60 Mg Capsule.Dr PO DAILY ZAIDA Enoxaparin Sodium 40 mg 05/18/20 18:00 05/18/20 20:07 Enoxaparin Sodium 40 Mg/0.4 Ml Syringe SUBCUT 40 mg Q24H ZAIDA Administration Lactated Ringer's 1,000 mls @ 150 mls/hr 05/18/20 16:51 05/19/20 12:07 Lr IVCONT 100 mls/hr .Q6H40M ZAIDA Administration Nicotine 14 mg 05/18/20 16:51 05/18/20 20:02 Nicotine 14 Mg Patch.Td24 TRANSDERMA Not Given DAILY ZAIDA Ondansetron HCl 4 mg 05/18/20 16:51 Ondansetron Hcl 4 Mg/2 Ml Vial IVPUSH Q8H PRN Nausea and Vomiting Pharmacy Consult 1 each 05/18/20 13:44 Consult Rx Perform Med Rec MISCELLANE ONCE PRN Consult order Prednisone 10 mg 05/19/20 09:00 Prednisone 10 Mg Tablet PO DAILY ZAIDA Sodium Chloride 3 ml 05/18/20 16:51 05/18/20 16:55 0.9 % Sodium Chloride Flush 3 Ml Syringe IVFLUSH 3 ml QSHIFT [facility] Administration Labs CBC & Chem 7: 05/19/20 05:56 05/19/20 05:56 Assessment and Plan (1) Rhabdomyolysis: Status: Acute (2) Drug overdose: Status: Acute Assessment and Plan: This is a 29-year-old male with a history of opiate abuse who was brought to the emergency department after being found down, treated with narcan, found to have rhabdo. 1. Rhabdomyolysis 2/2 to drug use likely improving hydration 2. Accidental opiate overdose resolved with narcan has been off drip > 5 hours without any effects at this point will keep drip on stand by, but doubt will be needed treat any potential withdrawal symptoms with clonidine 3. leukocytosis resolved 4. transaminitis downtrending likely from rhabdo 5. tabacco dependence NRT 6. Recent L elbow dislocation ortho input appreciated full code dvt pptx, lovenox
[2020-05-19] MEDS: Enoxaparin Sodium 40 MG/0.4 ML SYRINGE SUBCUT (17:35)
[2020-05-19] MEDS: LORazepam 2 MG/ML VIAL 1 MG IVPUSH (22:37)
[2020-05-20] VITALS (7 sets, daily range): BP systolic 130–148; BP diastolic 58–81; PULSE 64–77; RESP 18; TEMP 36.1–36.9; O2SAT 97–100
[2020-05-20] MEDS: Lactated Ringers 1,000 ML 100 ML IVCONT ×2 (02:24→09:31)
[2020-05-20 07:05] LABS: Anion Gap 13 (12-20); Blood Urea Nitrogen 14 mg/dL (9-16); Calcium 8.1 mg/dL (8.4-10.2); Carbon Dioxide 24 mmol/L (22-29); Chloride 105 mmol/L (96-108); Creatinine Clr Calc Pharmacy 160.1; Estimated Glomerular Filt Rate > 60; Glucose Random 82 mg/dL (60-115); Sodium 138 mmol/L (135-145)
[2020-05-20] MEDS: Nicotine 14 MG PATCH.TD24 TRANSDERMA (08:25)
--- NOTE | 2020-05-20 09:22 | HO.PM.IMPN ---
Subjective Subjective Date of Service: 05/20/20 Interval History: seen and examined feels the same as yesterday +diarrhea, nausea, anxiety still does not want to start methadone / suboxone or other MAT ROS General - no fevers or chills, +anxiety Cardiovascular - no chest pain Respiratory - no shortness of breath or cough Abdominal- +nausea/diarrhea, no abdominal pain MSK - LUE pain improving Physical Exam Vital Signs: Vital Signs: Last Vital Signs Temp 98 F 05/20/20 07:46 Pulse 64 05/20/20 07:46 Resp 18 05/20/20 07:46 BP 148/79 H 05/20/20 07:46 Pulse Ox 98 05/20/20 07:46 Body Mass Index 24.3 Const: Other: General - no acute distress, appears comfortable Cardiovascular - regular rate and rhythm, S1-S2 Lungs - normal respiratory effort, clear to auscultation bilaterally, no wheezing Abdomen - soft, nontender, no rebound or guarding Extremities - LUE swelling, pain minimal, +radial pulses; nearly room ROM at L elbow Neuro - awake and alert, no focal deficits Objective Data Current Medications Generic Name Dose Route Start Last Admin Trade Name Freq PRN Reason Stop Dose Admin Acetaminophen 650 mg 05/18/20 16:51 Acetaminophen 325 Mg Tablet PO Q6H PRN Pain, Mild (Pain Scale 1-3) Clonidine HCl 0.1 mg 05/19/20 13:31 05/19/20 13:47 Clonidine Hcl 0.1 Mg Tablet PO 0.1 mg Q6H PRN Administration Opiate Withdrawal Protocol Docusate Sodium 100 mg 05/18/20 16:51 Docusate Sodium 100 Mg Capsule PO DAILY PRN Constipation Duloxetine HCl 60 mg 05/19/20 09:00 Duloxetine Hcl 60 Mg Capsule.Dr PO DAILY ZAIDA Enoxaparin Sodium 40 mg 05/18/20 18:00 05/19/20 17:35 Enoxaparin Sodium 40 Mg/0.4 Ml Syringe SUBCUT 40 mg Q24H ZAIDA Administration Lactated Ringer's 1,000 mls @ 150 mls/hr 05/18/20 16:51 05/20/20 02:24 Lr IVCONT 100 mls/hr .Q6H40M ZAIDA Administration Loperamide HCl 2 mg 05/19/20 17:12 Loperamide Hcl 2 Mg Capsule PO Q6H PRN Diarrhea Nicotine 14 mg 05/18/20 16:51 05/20/20 08:25 Nicotine 14 Mg Patch.Td24 TRANSDERMA 14 mg DAILY ZAIDA Administration Ondansetron HCl 4 mg 05/18/20 16:51 Ondansetron Hcl 4 Mg/2 Ml Vial IVPUSH Q8H PRN Nausea and Vomiting Pharmacy Consult 1 each 05/18/20 13:44 Consult Rx Perform Med Rec MISCELLANE ONCE PRN Consult order Prednisone 10 mg 05/19/20 09:00 Prednisone 10 Mg Tablet PO DAILY ZAIDA Sodium Chloride 3 ml 05/18/20 16:51 05/18/20 16:55 0.9 % Sodium Chloride Flush 3 Ml Syringe IVFLUSH 3 ml QSHIFT ZAIDA Administration Labs CBC & Chem 7: 05/19/20 05:56 05/20/20 06:05 Assessment and Plan (1) Rhabdomyolysis: Status: Acute (2) Drug overdose: Status: Acute Assessment and Plan: This is a 29-year-old male with a history of opiate abuse who was brought to the emergency department after being found down, treated with narcan, found to have rhabdo. 1. Rhabdomyolysis improving taper IVF 2. Accidental opiate overdose resolved with narcan now in opiate withdrawal -- symptomatic treatment, he does not want MAT 3. leukocytosis resolved 4. transaminitis down-trending likely from rhabdo 5. tabacco dependence NRT 6. Recent L elbow dislocation ortho input appreciated full code dvt pptx, lovenox
[2020-05-20] MEDS: Loperamide HCl 2 MG CAPSULE PO (09:32)
[2020-05-20] MEDS: LORazepam 0.5 MG TABLET PO (09:33)
--- NOTE | 2020-05-20 11:05 | PM.EVENT ---
Event Note Date of Service: 05/20/20 Event Note: left arm swelling S: no changes sine yesterday, states pain is the same O: swelling and ecchymosis throughout the left arm, flex to 90, ext lag 5 deg. pulses present, able to make a fist and ext fingers A/P: continue elevation and cont to follow
--- NOTE | 2020-05-20 12:45 | MHC.CM.PN ---
Pt reports he was living at a sober home in [place] but was kicked out [employer]. Pt reports he has made arrangements to stay at his mothers at [place]. Pt reports he uses an inhaler but has no DME. Pt also denies having any services. Pt has a PCP on file and declines to complete a HCP. Current [place] plan is home with no services pt has a ride at [place]
--- NOTE | 2020-05-20 16:30 | PM.DS ---
DS: Providers Provider Date of admission: 05/18/20 13:59 Primary care physician: Ashley Ying NP Consults: 05/18/20 16:51 Consult to Care Team Routine Comment: Reason for consultation: opiate abuse 05/18/20 17:08 Consult to Orthopedics Routine Consulting Provider: Johny Stack Reason for consultation: left elbow dislocation s/p reduction; increasing arm swelling Has provider been notified: No DS: Diagnosis Discharge Diagnosis (1) Acute respiratory failure with hypoxia and hypercarbia: Status: Acute (2) Drug overdose: Status: Acute (3) Rhabdomyolysis: Status: Acute DS: Medications Discharge Medications Home Medications: Previous Rx's Medication Instructions Recorded duloxetine 1 cap PO DAILY #30 cap 05/20/20 mirtazapine [Remeron] 15 mg PO BEDTIME #30 tab 05/20/20 nicotine 14 mg TRANSDERMAL DAILY #14 ea 05/20/20 prednisone 1 tab PO DAILY #30 tab 05/20/20 DS: Summary Hospital Course Hospital Course: patient was admitted for rhabdomyolysis and respiratory failure with hypoxia and hypercarbia secondary to opiate overdose. He was started on intravenous fluids and Narcan drip. His respiratory failure resolved within 12 hours and his rhabdomyolysis improved over the course of 2 days. He will be discharged home with close follow-up with [facility]opedic [facility] for his recent left elbow dislocation. He was offered MAT for treatment of his opiate use disorder which he declined. Time Spent with Patient Time attestation: Total time spent providing and/or coordinating discharge services: Physical Exam Vital Signs: Vital Signs: Last Vital Signs Temp 98.5 F 05/20/20 16:15 Pulse 67 05/20/20 16:15 Resp 18 05/20/20 16:15 BP 137/81 05/20/20 16:15 Pulse Ox 100 05/20/20 16:15 Body Mass Index 24.3 Const: Other: General - no acute distress, appears comfortable Cardiovascular - regular rate and rhythm, S1-S2 Lungs - normal respiratory effort, clear to auscultation bilaterally, no wheezing Abdomen - soft, nontender, no rebound or guarding Extremities - LUE ROM near normal at the elbow joint, +swelling but soft withtout any neuromuscular compromise; +pulses Neuro - awake and alert, no focal deficits DS: Data Data Completed and Pending Labs on day of discharge: Laboratory Last Values WBC 8.3 X10*3/uL (4.8-10.8) 05/19/20 05:56 RBC 3.22 X10*6/uL (4.60-5.80) L 05/19/20 05:56 Hgb 10.2 g/dl (14.0-18.0) L 05/19/20 05:56 Hct 30.4 % (42-52) L 05/19/20 05:56 MCV 94.4 fL (80-98) 05/19/20 05:56 MCH 31.7 pg (27.0-33.0) 05/19/20 05:56 MCHC 33.6 g/dl (31.0-36.0) 05/19/20 05:56 RDW 13.4 % (11.0-16.0) 05/19/20 05:56 Plt Count 199 X10*3/uL (160-400) 05/19/20 05:56 MPV 10.3 fL (9.4-12.4) 05/19/20 05:56 Immature Gran % (Auto) 0.5 % (0.0-0.4) H 05/19/20 05:56 Neut % (Auto) 51.5 % (45-73) 05/19/20 05:56 Lymph % (Auto) 38.7 % (20-40) 05/19/20 05:56 [place] % (Auto) 7.7 % (2-11) 05/19/20 05:56 Eos % (Auto) 1.4 % (0-4) 05/19/20 05:56 Baso % (Auto) 0.2 % (0-2) 05/19/20 05:56 Lymph # (Auto) 3.2 X10*3/uL (1.2-4.9) 05/19/20 05:56 [place] # (Auto) 0.6 X10*3/uL (0.1-1.2) 05/19/20 05:56 Eos # (Auto) 0.1 X10*3/uL (0.0-0.4) 05/19/20 05:56 Baso # (Auto) 0.0 X10*3/uL (0.0-0.2) 05/19/20 05:56 Abs Immat Gran (auto) 0.04 X10*3/uL (0.00-0.03) H 05/19/20 05:56 Absolute Neuts (auto) 4.3 X10*3/uL (2.0-8.3) 05/19/20 05:56 Absolute Nucleated RBC 0.000 X10*3/uL (0.0-0.012) 05/19/20 05:56 Nucleated RBC % (auto) 0.0 /100WBC (0.0-0.2) 05/19/20 05:56 ABG pH 7.27 (7.35-7.45) L 05/18/20 17:35 ABG pCO2 68 mmhg (32-45) H* 05/18/20 17:35 ABG pO2 89 mmhg (83-108) 05/18/20 17:35 ABG HCO3 31 mmol/l (22-26) H 05/18/20 17:35 ABG O2 Saturation 95.5 % 05/18/20 17:35 ABG Base Excess 2.3 05/18/20 17:35 Oxygen Given 2 L 05/18/20 17:35 Sodium 138 mmol/L (135-145) 05/20/20 06:05 Potassium 4.0 mmol/l (3.3-5.1) 05/20/20 06:05 Chloride 105 mmol/L (96-108) 05/20/20 06:05 Carbon Dioxide 24 mmol/L (22-29) 05/20/20 06:05 Anion Gap 13 (12-20) 05/20/20 06:05 BUN 14 mg/dL (9-16) 05/20/20 06:05 Creatinine 0.69 mg/dL (0.5-1.4) 05/20/20 06:05 Estim Creat Clear Calc 160.1 05/20/20 06:05 Estimated GFR > 60 05/20/20 06:05 Random Glucose 82 mg/dL (60-115) 05/20/20 06:05 Calcium 8.1 mg/dL (8.4-10.2) L 05/20/20 06:05 Magnesium 2.0 mg/dL (1.6-2.6) 05/18/20 10:28 Total Bilirubin 1.0 mg/dL (0.0-1.0) 05/19/20 05:56 Direct Bilirubin 0.4 mg/dL (0.0-0.5) 05/19/20 05:56 AST 102 U/L (5-37) H 05/19/20 05:56 ALT 60 U/L (0-40) H 05/19/20 05:56 Alkaline Phosphatase 40 U/L (39-117) 05/19/20 05:56 Total Creatine Kinase 1990 U/L (38-174) H D 05/20/20 06:05 B-Natriuretic Peptide Cancelled 05/18/20 13:56 Total Protein 5.4 g/dL (6.5-8.0) L D 05/19/20 05:56 Albumin 3.4 g/dL (3.5-5.0) L D 05/19/20 05:56 Urine Color YELLOW 05/18/20 15:34 Urine Appearance CLEAR 05/18/20 15:34 Urine pH 6.0 (5.0-8.0) 05/18/20 15:34 Ur Specific [place] >= 1.030 (1.005-1.025) H 05/18/20 15:34 Urine Protein NEG MG/DL (NEG-TRACE) 05/18/20 15:34 Urine Glucose (UA) NEG MG/DL (NEG) 05/18/20 15:34 Urine Ketones NEG MG/DL (NEG) 05/18/20 15:34 Urine Blood NEG (NEG) 05/18/20 15:34 Urine Nitrite NEG (NEG) 05/18/20 15:34 Ur Leukocyte Esterase NEG (NEG) 05/18/20 15:34 Urine Opiates Screen POSITIVE (Not Detect) H 05/18/20 15:34 Ur Barbiturates Screen Not Detected (Not Detect) 05/18/20 15:34 Ur Phencyclidine Scrn Not Detected (Not Detect) 05/18/20 15:34 Ur Amphetamines Screen Not Detected (Not Detect) 05/18/20 15:34 U Benzodiazepines Scrn Not Detected (Not Detect) 05/18/20 15:34 Urine Cocaine Screen POSITIVE (Not Detect) H 05/18/20 15:34 U Marijuana (THC) Screen Not Detected (Not Detect) 05/18/20 15:34 COVID-19 ([facility]) Negative (Negative) 05/18/20 15:34 COVID-19 Clin Com See Note 05/18/20 15:34 Discharge Plan Discharge Patient Disposition: Home, Self-Care Referrals: Ashley Ying NP [Primary Care Provider] - Annie Pickard PA-C [Physician Stores Clerk] - (call office for appt tomorrow.) Discharge Medications: New nicotine 14 mg/24 hr Patch 24 Hour 14 mg transdermal DAILY Qty: 14 RF: 0 mirtazapine [Remeron] 15 mg tablet 15 mg PO BEDTIME Qty: 30 RF: 0 Continued prednisone 10 mg tablet 1 tab PO DAILY Qty: 30 RF: 0 duloxetine 60 mg capsule,delayed release(DR/EC) 1 cap PO DAILY Qty: 30 RF: 0 Discontinued ibuprofen 200 mg Tablet 800 mg PO BID PRN (Reason: Pain (Scale Score 1-3)) RF: 0 Discharge Orders: Discharge Order (Routine); Ordered 05/20/20 Ordered By: Beltran Ba Diet: advance to usual diet Activity on Discharge: As tolerated Visit Report Forms: Patient Portal Discharge page Care Plan Goals: To stay healthy and out of the hospital. Health Concerns: Elbow Dislocation Rhabdomyolysis Plan of Treatment: Elbow Dislocation - Keep arm elevated. Use tylenol for pain. Follow up orthopedics this week -- call their office for appt. Rhabdomyolysis - Drink plenty of water.
== END 2020-05-20 16:58 | disposition home or self-care (01) | DRG 917 ==
LOC: HO.ED 12:33 → HO.S3 14:38 → HO.IMC 18:48
PROVIDERS: Physician Assistant; Physician Assistant Medical; Admitting Provider Family Medicine; Emergency Provider Emergency Medicine; PCP Nurse Practitioner Family; Visit Provider Family Medicine
DX: T40.1X1A Poisoning by heroin, accidental (unintentional), initial encounter (principal); J96.02 Acute respiratory failure with hypercapnia; J96.01 Acute respiratory failure with hypoxia; M62.82 Rhabdomyolysis; T40.5X1A Poisoning by cocaine, accidental (unintentional), initial encounter; Y92.9 Unspecified place or not applicable; D72.829 Elevated white blood cell count, unspecified; R74.01 Elevation of levels of liver transaminase levels; F17.210 Nicotine dependence, cigarettes, uncomplicated; Z71.6 Tobacco abuse counseling; Z20.828 Contact with and (suspected) exposure to other viral communicable diseases; Z79.52 Long term (current) use of systemic steroids; Z79.899 Other long term (current) drug therapy
CPT/HCPCS: 36415; 36600; 70450; 71045; 72125; 73060; 73070; 73080; 73090; 80048; 80076; 80307; 81003; 82550; 82803; 83735; 85025; 87635; 96361; 96372; 96374; 96375; 99284; 99285; J1200; J1650; J2060; J2405; J3010

== ENCOUNTER → 2020-05-25 08:36 | Outpatient (BNVA) | payer OTHER, SELFPAY | PROVIDERS: PCP Nurse Practitioner Family; Visit Provider Physician Assistant | DX: S53.105D Unspecified dislocation of left ulnohumeral joint, subsequent encounter (principal) | CPT/HCPCS: 99202 ==

== ENCOUNTER → 2020-06-22 13:52 | Outpatient (BNVA) | payer OTHER, SELFPAY | PROVIDERS: Visit Provider Physician Assistant | DX: S53.105A Unspecified dislocation of left ulnohumeral joint, initial encounter (principal) | CPT/HCPCS: 99212 ==

== ENCOUNTER 2020-10-21 14:06 | Emergency (ER) | payer OTHER, SELFPAY ==
[2020-10-21 14:19] VITALS: BP 133/83; BP 140/80; PULSE 110; PULSE 89; RESP 18; O2SAT 98; BMI 24.3
--- NOTE | 2020-10-21 14:31 | ED.GENADULT ---
HPI - General Adult General Chief complaint: Overdose Stated complaint: Overdose Time Seen by Provider: 10/21/20 14:31 Source: patient Mode of arrival: EMS Limitations: no limitations History of Present Illness HPI narrative: 30-year-old male who presents emergency department for evaluation of heroin overdose. Patient states that he has a history of injection opiate use and has not used in a significant period of time. He states that he injected heroin and then does not remember what happened next. Apparently, his friend realized that the patient was not breathing and given intranasal Narcan. His friend then called 911. The patient states that he was not trying to kill himself. He denies homicidal or suicidal ideation. He states that he is not interested and discussing his opiate addiction with a therapist and does not want maintenance therapy at this time. The patient does not want further evaluation and does not want to remain in the emergency department for observation and is requesting to leave against medical advice. Related Data Previous Rx's Medication Instructions Recorded duloxetine 1 cap PO DAILY #30 cap 05/20/20 mirtazapine [Remeron] 15 mg PO BEDTIME #30 tab 05/20/20 nicotine 14 mg TRANSDERMAL DAILY #14 ea 05/20/20 prednisone 1 tab PO DAILY #30 tab 05/20/20 arm brace #1 ea 05/25/20 Allergies Allergy/AdvReac Type Severity Reaction Status Date / Time SEAFOOD Allergy Unknown UNKNOWN Uncoded 03/01/20 18:04 Review of Systems Review of Systems: Yes Other (Uncooperative with review of systems) PMFSH Past Medical History Medical History Cellulitis Eosinophilia HCV (hepatitis C virus) MRSA (methicillin resistant staph aureus) culture positive Opiate abuse, episodic Social History Social History Alcohol intake: never Smoking Status: Current every day smoker Packs Per Day: 1 Substance Use Type: Crack/Cocaine and Heroin Advance Directives: No Advance Directives Information Provided: Yes service: No Current occupational status: unemployed Current occupation: Right Handed Physical Exam Vital Signs: Vital Signs: Last Vital Signs Pulse 89 10/21/20 14:19 Resp 18 10/21/20 14:19 BP 133/83 10/21/20 14:19 Pulse Ox 98 10/21/20 14:19 Body Mass Index 24.3 Const: General: cooperative and poor hygiene Nutritional Appearance: average body habitus Orientation/consciousness: oriented to person, oriented to place and oriented to time Limitations: no limitations HENMT: Head: Yes normocephalic and Yes atraumatic Ears: hearing grossly normal bilaterally General nose exam: Normal external nose present Face and sinus: Yes normal facial exam Resp: Effort & Inspection: normal respiratory effort Neuro: General: oriented to person, oriented to place and oriented to time Cognition (Neuro): normal cognition Psych: Appearance: grossly normal Mental Status: mental status grossly normal Speech and movement: Normal speech and movement present Affect: normal affect Attitude: cooperative Thought process: Normal thought process present Thought content: suicidality and no homicidality Insight: Good insight present (Psych) Course Course Course Narrative: 30-year-old male who presented to the emergency department by ambulance for evaluation of overdose on injection narcotic medications. The patient states that he had not used heroin in a significant period of time and then injected himself with heroin. He became unresponsive and was treated by his roommate who gave the patient intranasal Narcan. Patient is now awake, alert oriented to person place and time. The patient denies being suicidal or homicidal. I did discuss the need to watch him for several hours to make sure that he does not have a rebound effect from his injection narcotics however the patient does not want to stay and is requesting leaving against medical advice. The patient does understand the consequences and the potential harm in leaving the hospital at this time therefore is allowed to sign out against medical advice. The patient was given an intranasal Narcan pack to take home with him. I did discuss how to use narcotic medications in the safe manner and make sure that if he injects narcotics again he should be with a sober observe her who can administer intranasal Narcan in the event that he becomes unresponsive her stops breathing Discharge Plan Discharge Clinical Impression: Narcotic overdose Patient Disposition: Left Against Medical Advice Prescriptions: No Action nicotine 14 mg/24 hr Patch 24 Hour 14 mg transdermal DAILY Qty: 14 RF: 0 mirtazapine [Remeron] 15 mg tablet 15 mg PO BEDTIME Qty: 30 RF: 0 prednisone 10 mg tablet 1 tab PO DAILY Qty: 30 RF: 0 duloxetine 60 mg capsule,delayed release(DR/EC) 1 cap PO DAILY Qty: 30 RF: 0 (DME) arm brace Misc See Rx Instructions .[facility] Qty: 1 RF: 0
== END 2020-10-21 14:40 | disposition left against medical advice (07) ==
PROVIDERS: Emergency Provider Emergency Medicine Emergency Medical Services
DX: T40.1X1A Poisoning by heroin, accidental (unintentional), initial encounter (principal); F11.10 Opioid abuse, uncomplicated; Y92.9 Unspecified place or not applicable; Z79.899 Other long term (current) drug therapy; Z71.51 Drug abuse counseling and surveillance of drug abuser
CPT/HCPCS: 99283

== ENCOUNTER 2020-10-22 07:38 | Emergency (ER) | payer OTHER, SELFPAY ==
--- NOTE | 2020-10-22 07:47 | ED.CPR ---
HPI - CPR General Chief Complaint: Cardiac Arrest/CPR Stated Complaint: CARDIAC ARREST Time Seen by Provider: 10/22/20 07:47 Source: EMS and old records reviewed Mode of arrival: EMS Limitations: other (ongoing CPR) History of Present Illness HPI narrative: 30 yo male with IVDA opiate abuse comes in after being found unresponsive face down, not breathing, no pulse last seen in the middle of the night, found with a needle, PD responded per EMS administered 8mg IN narcan no effect, EMS suspects 7+ minutes of downtime before CPR started, EMS performed CPR for 30 minutes without ROSC asystole ?brief PEA MD complaint: found unresponsive Onset (ago): unknown Timing confirmed by: family member Place: home Bystander CPR performed: Yes (delayed by about 7 minutes) AED applied by bystander/first aid trainer: Yes Shock advised: No Initial findings in the field: unresponsive, no respirations and no pulse ROSC in the field: No Associated injuries: No Known history of: drug abuse Treatments prior to arrival: intubation, chest compressions and epinephrine mgs # (5) Related Data Previous Rx's Medication Instructions Recorded duloxetine 1 cap PO DAILY #30 cap 05/20/20 mirtazapine [Remeron] 15 mg PO BEDTIME #30 tab 05/20/20 nicotine 14 mg TRANSDERMAL DAILY #14 ea 05/20/20 prednisone 1 tab PO DAILY #30 tab 05/20/20 arm brace #1 ea 05/25/20 Allergies Allergy/AdvReac Type Severity Reaction Status Date / Time SEAFOOD Allergy Unknown UNKNOWN Uncoded 03/01/20 18:04 Review of Systems Review of Systems: ROS unable to be obtained due to ongoing CPR [facility] Past Medical History Attestation statement: The following information was validated with the patient. Medical History Cellulitis Eosinophilia HCV (hepatitis C virus) MRSA (methicillin resistant staph aureus) culture positive Opiate abuse, episodic Social History Social History Alcohol intake: never Smoking Status: Current every day smoker Packs Per Day: 1 Substance Use Type: Crack/Cocaine and Heroin Advance Directives: No Advance Directives Information Provided: No service: No Current occupational status: unemployed Current occupation: Right Handed Physical Exam Vital Signs: Vital Signs: Last Vital Signs Pulse 0 L 10/22/20 07:58 Body Mass Index 24.0 Appearance: Pale, ongoing CPR, unresponsive Eyes: Pupils fixed and dilated ENT: Pharynx normal. Abrasions to r forehead Neck: Normal inspection. Neck supple. CVS: mottled, no spontaneous pulse, ongoing CPR with good femoral pulses felt Respiratory: Breath sounds equal with tube, no spontaneous respirations Abdomen: Soft no trauma Skin: Skin pale and mottled, track vela noted in AC and on dorsum of hands Extremities: No lower extremity edema. No calf ttp Neuro: unresponsive, no response to verbal or painful stimuli. Course Course Course Narrative: patient with 40+ minutes of known downtime (but presumed longer) and delayed bystander CPR 7+ minutes has not had ROSC in the field, has no cardiac activity on US, no heart sounds, no neurologic functions at this time given prolonged downtime without ROSC with asystole on the monitor resuscitative efforts were stopped and time of at 744am. accepted by [facility] 815am - [id number] Matthew Alba Procedures Procedure Narrative Procedure Narrative: 744 bedside ECHO no cardiac movement, asystole on the monitor. MDM - Cardiac Arrest/CPR MDM Narrative Medical decision making narrative: 30 yo male found down after presumed opiate overdose - no response to 30+ minutes of prehospital treatments, had 7+ minutes of delayed bystander CPR at this time resuscitative efforts stopped due to asystole on monitor, no cardiac activity on US, no pulse, will call medical social consultant. Lab Data Labs: Lab Results 10/22/20 Range/Units 07:42 POC Glucose 180 H (60-115) mg/dL Critical Care Time Critical Care Time Critical Care Time: Yes Total Critical Care Time: 10 Attestation: call to medical social consultant, review of records, discussion with family I attest to this time spent taking care of the patient Discharge Plan Discharge Clinical Impression: Cardiac arrest Patient Disposition:
[2020-10-22 07:53] LABS: Glucose, Whole Blood 180 mg/dL (60-115)
[2020-10-22 07:58] VITALS: PULSE 0; BMI 24.0
--- NOTE | 2020-10-22 08:11 | PC.NURSE ---
Called [facility] and spoke with Sonia. Per Sonia they will not accept pt. [facility]
--- NOTE | 2020-10-22 08:14 | PC.NURSE ---
DIETETIC ASSISTANT CALLED AT 0810.
--- NOTE | 2020-10-22 08:15 | PC.NURSE ---
[facility] ACCEPTED PT AT 0815.
--- NOTE | 2020-10-22 11:18 | PC.NURSE ---
Family has left bedside at this time.
--- NOTE | 2020-10-22 11:38 | PC.NURSE ---
[facility] [place] [facility]
== END 2020-10-22 11:37 | disposition expired ==
PROVIDERS: Emergency Provider Emergency Medicine
DX: I46.9 Cardiac arrest, cause unspecified (principal); F11.10 Opioid abuse, uncomplicated
CPT/HCPCS: 82947; 96372; 99282; 99283; 99285; J0171